=== PATIENT | female | born 1945 | race Caucasian/White ===

== ENCOUNTER 2024-01-30 07:39 | Emergency (ER) | payer MEDICARE ==
--- NOTE | 2024-01-30 08:18 | ED ---
General Adult HPI - General Chief complaint: Abdominal Pain Stated complaint: Constipation Time Seen by Provider: 01/30/24 07:58 Source: patient, family, RN notes reviewed Mode of arrival: ambulatory Limitations: no limitations - History of Present Illness Initial comments: Patient is a pleasant 78-year-old female presenting to the emergency department with concerns for constipation. Patient states that has been a couple weeks since she has had a good bowel movement. Patient has tried [id number] suppository and enema as well as stuff by mouth without much improvement. Patient has had a small amount of output. Patient did vomit once. Patient is having some right-sided discomfort. No fever. - Related Data Previous Rx's Medication Instructions Recorded Pantoprazole [Protonix] 40 mg PO DAILY #30 tab 01/30/24 Allergies Allergy/AdvReac Type Severity Reaction Status Date / Time No Known Allergies Allergy Verified 01/30/24 07:47 Review of Systems ROS Statement: Those systems with pertinent positive or pertinent negative responses have been documented in the HPI. ROS Other: All systems not noted in ROS Statement are negative. Constitutional: Denies: fever Eyes: Denies: eye pain ENT: Denies: ear pain Respiratory: Denies: cough Cardiovascular: Denies: chest pain Endocrine: Denies: fatigue Gastrointestinal: Reports: as per HPI, constipation Genitourinary: Denies: dysuria Musculoskeletal: Denies: back pain Skin: Denies: rash Neurological: Denies: weakness Past Medical History Past Medical History: Hyperlipidemia History of Any Multi-Drug Resistant Organisms: None Reported Past Surgical History: No Surgical Hx Reported Past Psychological History: No Psychological Hx Reported Smoking Status: Never smoker Past Alcohol Use History: Rare Past Drug Use History: None Reported General Exam Limitations: no limitations General appearance: alert, in no apparent distress Head exam: Present: normocephalic Eye exam: Present: normal appearance Respiratory exam: Present: normal lung sounds bilaterally Cardiovascular Exam: Present: regular rate, normal rhythm GI/Abdominal exam: Present: soft, tenderness (Minimal diffuse, more on the right side), hyperactive bowel sounds Extremities exam: Present: normal inspection Neurological exam: Present: alert Psychiatric exam: Present: normal affect, normal mood Skin exam: Present: normal color Course Vital Signs 01/30/24 07:44 Temperature 98.6 F Pulse Rate 81 Respiratory 18 Rate Blood Pressure 120/79 O2 Sat by Pulse 97 Oximetry Medical Decision Making - Medical Decision Making Was pt. sent in by a medical professional or institution (ANA Gross, [employer], urgent care, hospital, or [place] health [place] facility...) When possible be specific @ -No Did you speak to anyone other than the patient for history (EMS, parent, family, police, friend...)? What history was obtained from this source @ -Daughter is present and helps provide history including that patient is no longer on medication for her stomach Did you review nursing and triage notes (agree or disagree)? Why? @ -I reviewed and agree with nursing and triage notes Were old charts reviewed (outside hosp., previous admission, EMS record, old EKG, old radiological studies, urgent care reports/EKG's, [place] health [facility] facility records)? Report findings @ -No old charts were reviewed Differential Diagnosis (chest pain, altered mental status, abdominal pain women, abdominal pain men, vaginal bleeding, weakness, fever, dyspnea, syncope, headache, dizziness, GI bleed, back pain, seizure, CVA, palpatations, mental health, musculoskeletal)? @ -Differential Abdominal Pain Women: Appendicitis, Cholecystitis, diverticulosis, ischemic bowel, pancreatitis, hepatitis, UTI, gastroenteritis, AAA, incarcerated hernia, bowel obstruction, constipation, inflammatory bowel, hepatitis, peptic ulcer disease, splenic infarction, perforated viscus, vulvitis, ovarian torsion, PID, kidney stone, placenta abruption, this is not meant to be an all-inclusive list EKG interpreted by me (3pts min.). @ -As above X-rays interpreted by me (1pt min.). @ -Abdominal x-ray does not show obvious obstruction CT interpreted by me (1pt min.). @ -None done U/S interpreted by me (1pt. min.). @ -None done What testing was considered but not performed or refused? (CT, X-rays, U/S, labs)? Why? @ -None What meds were considered but not given or refused? Why? @ -None Did you discuss the management of the patient with other professionals (professionals i.e. ANA Gross, [employer], lab, RT, psych nurse, geriatric social work professor, schedule analyst, teacher, legal compliance officer, nurse outreach case manager)? Give summary @ -No Was smoking cessation discussed for >3mins.? @ -No Was critical care preformed (if so, how long)? @ -No Were there social determinants of health that impacted care today? How? (Homelessness, low income, unemployed, alcoholism, drug addiction, transportation, low edu. Level, literacy, decrease access to med. care, custodial, rehab)? @ -No Was there de-escalation of care discussed even if they declined (Discuss DNR or withdrawal of care, Hospice)? DNR status @ -No What co-morbidities impacted this encounter? (DM, HTN, Smoking, COPD, CAD, Cancer, CVA, ARF, Chemo, Hep., AIDS, mental health diagnosis, sleep apnea, morbid obesity)? @ -None Was patient admitted / discharged? Hospital course, mention meds given and route, prescriptions, significant lab abnormalities, going to OR and other pertinent info. @ -Patient presents with constipation. Patient provided enema with resolution of symptoms. Abdomen soft and nontender. Patient does feel better and would li ke to be discharged. Patient states she does have an appointment in a couple of weeks with her mortar mixer. Undiagnosed new problem with uncertain prognosis? @ -No Drug Therapy requiring intensive monitoring for toxicity (Heparin, Nitro, Insulin, Cardizem)? @ -No Were any procedures done? @ -No Diagnosis/symptom? @ -Constipation Acute, or Chronic, or Acute on Chronic? @ -Acute Uncomplicated (without systemic symptoms) or Complicated (systemic symptoms)? @ -Default Side effects of treatment? @ -No Exacerbation, Progression, or Severe Exacerbation? @ -No Poses a threat to life or bodily function? How? (Chest pain, [place], AR, pneumonia, PE, COPD, DKA, ARF, appy, cholecystitis, CVA, Diverticulitis, Homicidal, Suicidal, threat to staff... and all critical care pts) @ -No Disposition Clinical Impression: Constipation Disposition: HOME SELF-CARE Condition: Stable Instructions (If sedation given, give patient instructions): Constipation (ED), High Fiber Diet (ED) Additional Instructions: Please do follow-up with your mortar mixer as planned. Please also follow-up with your primary care physician in the next couple of days for recheck. Return for abdominal pain, fever, unable to have bowel movement, vomiting, worsening symptoms or other concerns. Prescription sent to pharmacy. Prescriptions: Pantoprazole [Protonix] 40 mg PO DAILY #30 tab Is patient prescribed a controlled substance at d/c from ED?: No Referrals: Danilo Workman DO [Primary Care Provider] - 1-2 days Time of Disposition: 12:28
--- NOTE | 2024-01-30 08:43 | XR ---
EXAMINATION TYPE: XR abdomen 1V DATE OF EXAM: 01/30/2024 8:25 AM CLINICAL INDICATION:Female, 78 years old with history of constipation; COMPARISON: None. TECHNIQUE: One radiographic view of the abdomen was obtained. FINDINGS: The bowel gas pattern is nonspecific without dilated loops of small or large bowel. There i s no evidence for organomegaly or pneumoperitoneum. The osseous structures are intact. No abnormal calcifications are present. Fecal material and gas are demonstrated throughout the colon and rectum. IMPRESSION: Nonspecific bowel gas pattern without radiographic evidence for acute process.
[2024-01-30 19:36] VITALS: BP 133/72; PULSE 68; RESP 20; TEMP 98.4
== END 2024-01-30 12:37 | disposition home or self-care (01) ==
LOC: EC 07:39
DX: K59.00 Constipation, unspecified (principal)
CPT/HCPCS: 74018; 99284

== ENCOUNTER 2024-04-24 06:41 | Emergency (ER) | payer MEDICARE ==
[2024-04-24] MEDS ORDERED: SODIUM CHLORIDE 0.9% 500 ML BAG ONE (07:15)
[2024-04-24] MEDS ORDERED: MAGNESIUM CITRATE 296 ML BOTTLE ONE (13:44)
--- NOTE | 2024-05-16 14:12 | CT ---
Patient Natalya Dai ID [id number] Order # EXAMINATION TYPE: CT abdomen pelvis w con DATE OF EXAM: 04/24/2024 COMPARISON: No comparison available on downtime PACS. INDICATION: Abdomen pain DLP: 449.7 mGycm, Automated exposure control for dose reduction was used. CONTRAST: 100 mL of Isovue 300. Study performed without Oral Contrast TECHNIQUE: Axial images were obtained from above the diaphragm to the pubic rami in the axial plane a t 5 mm thick sections. Reconstructed images are reviewed on the computer in the coronal plane. FINDINGS: Limited CT sections are obtained the lung bases. The lung bases are clear. CT ABDOMEN: There are multiple fluid-filled small bowel loops. Air-fluid levels are within the colon which is prominent. Some mild wall enhancement may be through the distal small bowel loops. Correlate for any ischemic type changes. Clinical correlation for ileus is recommended. Follow-up is recommend ed. Liver: Normal Spleen: Normal Pancreas: Normal Adrenal glands: The adrenal glands are normal. Gallbladder: Normal Kidneys: No masses are evident. No hydronephrosis is present. No cysts are present. Delayed images were obtained through the kidneys, which remain unremarkable. Aorta: Vascular calcification is within the aorta. Inferior vena cava: Normal. CT PELVIS: No suspicious obstruction identified. Study is without oral contrast. Appendix: Normal as visualized. No adjacent inflammatory changes identified. Urinary bladder: Normal. Genitourinary structures: Uterus appears unremarkable. Adnexa is unremarkable Osseous structures: No suspicious lytic or sclerotic lesions. IMPRESSION: 1. Fluid-filled small bowel loops and colon with scattered air-fluid levels. Findings appear suggest betina for gastroenteritis. Clinical correlation recommended. Ileus could be considered within the diffe rential. Correlate for any early ischemic type changes. Follow-up is recommended.
== END 2024-04-24 13:56 | disposition home or self-care (01) ==
LOC: EC 06:41
DX: K52.9 Noninfective gastroenteritis and colitis, unspecified (principal)
CPT/HCPCS: 74177; 96360; 99284

== ENCOUNTER 2024-04-30 07:45 | Day surgery (SDC) | payer MEDICARE ==
[2024-04-30] MEDS ORDERED: PROPOFOL 10 MG/ML 20 ML VIAL IV ONE (08:50)
[2024-04-30] MEDS ORDERED: LACTATED RINGERS 1,000 ML BAG ONE (08:50)
[2024-04-30] MEDS ORDERED: GLYCOPYRROLATE 0.2 MG/ML 2 ML VIAL ONE (08:50)
--- NOTE | 2024-05-14 16:40 | OP ---
OPERATIVE REPORT DATE OF SERVICE : 04/30/2024 REQUESTING PHYSICIAN: Danilo Workman BRIEF HISTORY: The patient is a 78-year-old pleasant white female scheduled for an upper endoscopy as well as colonoscopy as a part of evaluation of chronic epigastric pain and change in bowel habits for the last several months' duration. PROCEDURES PERFORMED: 1. EGD with biopsy. 2. Colonoscopy. PREOPERATIVE DIAGNOSIS: Chronic epigastric pain and change in bowel habits. ANESTHESIA: IV sedation per Anesthesia. DESCRIPTION OF PROCEDURE: After informed consent was obtained from the patient, she was brought in to the endoscopy unit. IV conscious sedation was administered by anesthesia under continuous monitoring. Initially upper endoscopy was done. The Olympus CF-180 video endoscope was inserted in the mouth and esophagus intubated without any difficulty and was gradually advanced into the stomach and duodenum. Along the duodenal sweep in the duodenal bulb, there was a 1 cm DICTATION ENDS HERE. MMODL / IJN: [id number] /
--- NOTE | 2024-05-14 16:40 | PCN ---
PROCEDURE NOTE HISTORY OF PRESENT ILLNESS: The patient is a 78-year-old pleasant white female scheduled for an upper endoscopy as well as colonoscopy as a part of evaluation of epigastric pain and change in bowel habits for the last 7 months' duration. PROCEDURES PERFORMED: 1. EGD with biopsy. 2. Colonoscopy. PREOPERATIVE DIAGNOSIS: Chronic epigastric pain and change in bowel habits. ANESTHESIA: IV sedation per Anesthesia. DESCRIPTION OF PROCEDURE: After informed consent was obtained from the patient, she was brought in to the endoscopy unit. IV conscious sedation was administered by Anesthesia under continuous monitoring initially. The Olympus CF-180 video endoscope was inserted in the mouth, esophagus intubated without any difficulty and was gradually advanced into the stomach and duodenum was carefully examined. Along the duodenal sweep, in the duodenal bulb, there was a 1 cm clean-based ulcer identified with some duodenal narrowing, but the scope could be advanced into the second part of the duodenum that appeared normal. Scope at this time was withdrawn through the stomach. Mild gastritis was noted in the antrum and biopsies were done from this area. Body, cardia, and fundus appeared normal. Scope was then withdrawn through the esophagus. GE junction was located at 38 cm from the incisors that appeared regular with no erythema, erosions or ulcerations. The entire length of the esophagus appeared normal and the patient tolerated the procedure well. She continued to remain sedated, at this time a colonoscopy was done. Digital rectal examination was normal. The Olympus CF-190 video colonoscope was then inserted in the rectum, gradually advanced the scope into the cecum. Careful examination was performed as the scope was gradually being withdrawn. The ileocecal valve and appendiceal orifice were visualized and appeared normal. The prep was excellent. Mucosa of the cecum, ascending colon, transverse colon, descending colon, sigmoid colon, and rectum appeared normal. In the rectum, retroflexion was performed, no lesions were noted and the patient tolerated the procedure well. IMPRESSION: 1. Upper endoscopy revealed. a.1-cm duodenal ulcer along the duodenal sweep with mild duodenal stricture. 2. Mild antral gastritis. Colonoscopy was within normal limits with no evidence of colorectal neoplasia. RECOMMENDATIONS: Findings of this examination were discussed with the patient as well as her family. She was advised to continue with Protonix 40 mg daily and avoid NSAIDs. Continue with laxatives as needed. She will be seen in the office in 2-3 weeks. MMODL / IJN: [id number] /
== END 2024-04-30 10:10 ==
LOC: ORWHC2ENDO 07:45
PROVIDERS: ATTEND Internal Medicine Gastroenterology
DX: K29.50 Unspecified chronic gastritis without bleeding (principal); K31.A0 Gastric intestinal metaplasia, unspecified; G89.29 Other chronic pain; K31.5 Obstruction of duodenum; K26.9 Duodenal ulcer, unspecified as acute or chronic, without hemorrhage or perforation; I10 Essential (primary) hypertension; K21.9 Gastro-esophageal reflux disease without esophagitis; Z79.899 Other long term (current) drug therapy
CPT/HCPCS: 43239; 45378; 88305; 88342